=== PATIENT | female | born 1995 | race Two or more races ===

== ENCOUNTER 2018-01-09 15:27 | Emergency (ER) | payer OTHER ==
[~2018-01-09] VITALS: Ht 162.6 cm; Wt 71.7 kg
[~2018-01-09 15:27] MED LIST: AMOX1TAB12 PO; BACTRIM DS TABL1 TAB PO; CEPHALEXIN500 MG PO; MUCINEX DM ER1 EAC1 PO; ORASEP SPRAY30 ML MM; ULTRACET PO; VENTOLIN HFA18 GM IH
[2018-01-09] MEDS ORDERED: DUI500 PO (20:57)
== END 2018-01-09 21:10 | disposition home or self-care (01) ==
LOC: ER 15:27
DX: B34.9 Viral infection, unspecified (principal)

== ENCOUNTER 2018-05-07 10:50 | Inpatient (IN) | payer OTHER ==
[~2018-05-07] VITALS: Ht 162.6 cm; Wt 79.4 kg
[~2018-05-07 10:50] MED LIST changes: +DUI500 PO; +FERROUS SULFAT325 MG PO; +KEFLEX500 MG PO
[2018-05-15] MEDS ORDERED: FERROUS SULFAT325 M1 PO (12:14)
[2018-05-15] MEDS ORDERED: NAPR500T14 PO (12:15)
[2018-05-15] MEDS ORDERED: PREPLUS CA-FE1 EACH PO (12:15)
== END 2018-05-15 13:43 | disposition home or self-care (01) | DRG 765 ==
LOC: O/R 05-13 07:00 → OB/GYN 05-13 15:25
PROVIDERS: Specialist
PROC: 0UL70ZZ Occlusion of Bilateral Fallopian Tubes, Open Approach (ICD-10-PCS; 2018-05-13)
PROC: 4A1HXCZ Monitoring of Products of Conception, Cardiac Rate, External Approach (ICD-10-PCS; 2018-05-13)
PROC: 10D00Z1 Extraction of Products of Conception, Low, Open Approach (ICD-10-PCS; principal; 2018-05-13 07:00)
DX: O99.02 Anemia complicating childbirth (principal); O75.3 Other infection during labor; Z3A.39 39 weeks gestation of pregnancy; Z37.0 Single live birth; Z30.2 Encounter for sterilization